=== PATIENT | female | born 1950 | race Caucasian/White ===

== ENCOUNTER → 2020-04-29 15:02 | Outpatient (BNVA) | payer OTHER, SELFPAY | PROVIDERS: PCP Nurse Practitioner Family; Visit Provider Nurse Practitioner Family | DX: R73.9 Hyperglycemia, unspecified (principal); I10 Essential (primary) hypertension | CPT/HCPCS: 80053; 80061; 84443; 85025 ==

== ENCOUNTER → 2020-05-13 09:04 | Outpatient (BNVA) | payer OTHER, SELFPAY | PROVIDERS: PCP Nurse Practitioner Family; Visit Provider Nurse Practitioner | DX: I10 Essential (primary) hypertension (principal); R73.9 Hyperglycemia, unspecified | CPT/HCPCS: 83036 ==

== ENCOUNTER 2020-09-10 13:47 | Outpatient (CLI) | payer MEDICARE, SELFPAY ==
--- NOTE | 2020-09-10 14:15 | USCV_ITS ---
Kaitlin Cee Age: 69 Gender: F : 1950 Exam Date: 09/10/2020 14:26 Ordering Phys: Hugo Reynaga Technologist: Clement Nelson Exam Location: [facility] [place] Indication: CHEST PAIN BP: 125 / 70 HR: 90 Rhythm: Sinus Technical Quality: Good MEASUREMENTS (Male / Female) Normal Values 2D ECHO LV Diastolic Diameter PLAX 4.3 cm 4.2 - 5.9 / 3.9 - 5.3 cm LV Systolic Diameter PLAX 2.4 cm IVS Diastolic Thickness 0.7 cm 0.6 - 1.0 / 0.6 - 0.9 cm IVS Systolic Thickness 1.4 cm LVPW Diastolic Thickness 1.0 cm 0.6 - 1.0 / 0.6 - 0.9 cm LVPW Systolic Thickness 1.2 cm LVOT Diameter 2.1 cm LV Ejection Fraction 2D Teich 77.2 % LV Ejection Fraction MOD 2C 78.7 % LV Ejection Fraction 2C AL 78.3 % LA Diameter 2.7 cm LA Width 4.2 cm LA Height 3.9 cm RA Width 3.5 cm RA Height 4.3 cm Aorta at Sinotubular Diameter 2.3 cm DOPPLER AV Peak Velocity 152.0 cm/s LVOT Peak Velocity 107.0 cm/s AV Area Cont Eq vti 2.4 cm squared AV Area Cont Eq pk 2.4 cm squared MV Area PHT 5.0 cm squared Mitral E to A Ratio 1.1 MV E' Velocity 58.5 cm/s Mitral E to MV E' Ratio 8.1 Mitral E to LV E' Lateral Ratio 7.8 Mitral E to LV E' Septal Ratio 8.4 TR Peak Velocity 166.7 cm/s TR Peak Gradient 11.1 mmHg Right Atrial Pressure 3.0 mmHg Pulmonary Artery Systolic Pressu 14.1 mmHg FINDINGS Left Ventricle Normal left ventricular size and systolic function, EF 75 %. No regional wall motion abnormalities. Right Ventricle Normal right ventricular size and systolic function. Echodensity towards the RV apex may suggest border to band Right Atrium The right atrium is normal in size. Left Atrium The left atrium is normal in size. Mitral Valve Trace mitral valve regurgitation. Minimally thickened mitral valve Aortic Valve Minimally thickened aortic valve Tricuspid Valve No Gross abnormalities noted Pulmonic Valve No gross abnormalities noted Pericardium No pericardial effusion. Aorta Normal ascending aorta dimension. CONCLUSIONS Normal left ventricular size and systolic function, EF 75 %. No regional wall motion abnormalities. Normal right ventricular size and systolic function. Echodensity towards the RV apex may suggest border to band Minimally thickened aortic and mitral valves. Trace mitral valve regurgitation. No significant stenotic or regurgitant lesions No previous study is available for comparison. Dr Sabra Frederick MD [facility] (Electronically Signed) Final Date: 10 September 2020 20:31 S
--- NOTE | 2020-09-10 15:00 | USCV_ITS ---
KunalKaitlin peterson Age: 69 Gender: F : 1950 Exam Date: 09/10/2020 14:39 Ordering Phys: Hugo Reynaga Technologist: Clement Nelson [place] [facility] [place]: [place] Risk Factors: Unknown Previous Vascular Surgery: None Right Brachial BP: / Left Brachial BP: / Right Left Velocity (cm/s) Spectral Plaque Velocity (cm/s) Spectral Plaque Syst/Diast Broadening Syst/Diast Broadening 97.00/ 18.70 Prox CCA 93.50 / 23.40 79.40/ 17.60 Mid CCA 104.30/ 19.80 70.60/ 20.90 Hetro Distal CCA 80.20 / 18.40 Hetro 113.30/21.60 Hetro Prox ICA 147.60/ 40.40 Hetro 125.90/28.80 Mid ICA 127.40/ 23.10 129.50/27.00 Distal ICA 107.70/ 19.80 169.10 Hetro ECA 106.90 Hetro 1.33 ICA/CCA 1.41 Antegrade Vertebral Antegrade 109.7/ 34.20 cm/s 33.60/ 13.20 cm/s 0 Tri Subclavian Tri 188.9 76.90 0 FINDINGS Moderate heterogeneous plaques at the left bifurcation and proximal carotid artery Moderate heterogeneous plaques at the right bifurcation and internal carotid artery. Antegrade flow in the vertebral arteries bilaterally Elevated Doppler flow velocity in the right vertebral and subclavian arteries Normal Doppler flow velocities in the left vertebral and subclavian arteries CONCLUSIONS Moderate heterogeneous plaques o at the left bifurcation and proximal carotid artery with Doppler features, consistent with 50 to 69% gnosis Moderate heterogeneous plaques of the right bifurcation and internal carotid artery with Doppler features consistent with less than 50% stenosis. Elevated velocity in the right subclavian and vertebral arteries may suggest hemodynamically significant stenosis No similar previous studies are available for comparison. Consider CTA to better evaluate the subclavian and vertebral arteries Dr Sabra Frederick MD [facility] (Electronically Signed) Final Date: 10 September 2020 20:56 S
== END 2020-09-10 13:48 | disposition home or self-care (01) ==
LOC: US 13:51
PROVIDERS: PCP Nurse Practitioner; Visit Provider Nurse Practitioner
DX: R09.89 Other specified symptoms and signs involving the circulatory and respiratory systems (principal); R01.1 Cardiac murmur, unspecified; R55 Syncope and collapse; I65.23 Occlusion and stenosis of bilateral carotid arteries; I08.0 Rheumatic disorders of both mitral and aortic valves
CPT/HCPCS: 93306; 93880

== ENCOUNTER 2020-11-02 07:54 | Outpatient (CLI) | payer MEDICARE, SELFPAY ==
--- NOTE | 2020-11-02 08:23 | CT_ITS ---
WS: [id number] CTA HEAD AND NECK TECHNIQUE: Contrast enhanced CTA of the head and neck with coronal and sagittal reformatted images an d maximum intensity projection (MIP) images. NASCET criteria utilized. CLINICAL INFORMATION: R09.89 - Other specified symptoms and signs involving the... COMPARISON: None. DLP: 1997.[address] scans at [facility] use at least one of these dose optimization techniques: automated e xposure control; mA and/or kV adjustment per patient size (includes targeted exams where dose is matc hed to clinical indication); or iterative reconstruction. FINDINGS: Mild small vessel changes. Mild parenchymal volume loss. No extra-axial fluid collections. Paranasal sinuses are well aerated. Mastoid air cells are well aerated. Heterogeneous multinodular th yroid worse in the left. Enlarged left thyroid lobe with multiple nodules largest left lower lobe ext ending into the upper mediastinum measuring 3.2 x 5.5 cm. Lung apices are well aerated. Ectopic heterogeneous enhancing ectopic thyroid tissue or exophytic nodule along the midline neck jus t inferior to the hyoid. This measures approximately 15 x 10 mm. This can be further evaluated with u ltrasound. This just abuts the superior aspect of the isthmus. RIGHT: Right common carotid artery is patent. Moderate calcified atheromatous plaque right carotid bu lb extending into the ICA. Less than 50% right ICA stenosis. Right ICA is patent to the skull base. LEFT: Left common carotid artery is patent. Moderate calcified atheromatous plaque left carotid bulb extending into the ICA. Left ICA stenosis measures 58%. Left ICA remains patent to the skull base. INTRACRANIAL CTA: Small right vertebral artery. Left dominant vertebral artery. Both vertebral arteries are patent. Bas ilar artery is patent. Normal vascularity to the [employer] territory bilaterally. Persistent right PC A. Both ICAs are patent at the skull base. Calcified cavernous carotid calcification. Normal vascularity to the BRIANNA and MCA territories bilaterally. No flow-limiting intracranial stenosis. No aneurysm. Moderate spondylitic changes cervical spine with anterior hypertrophic changes. Slight anterolisthesi s C3 on C4 and C4 on C5. Proximal subclavian arteries are patent. CT/CT angio headneck* [id number] IMPRESSION: 1. Calcified atheromatous plaque RIGHT carotid bulb extending into the ICA wit h less than 50% stenosis. 2. Calcified atheromatous plaque LEFT carotid bulb extending into the ICA with approximately 58% stenosis. 3. Left dominant vertebral artery. Both vertebral arteries are patent. 4. Normal intracranial CTA. Normal variant persistent right [employer]. 5. Heterogeneous enlarged thyroid worse in the left. Additional ectopic midlin e thyroid tissue or exophytic Isthmus nodule described above. Thyroid can be fu rther evaluated with ultrasound. 6. Moderate spondylitic changes cervical spine.
[2020-11-02] MEDS: iohexol 350 mg/mL 100 mL Btl IV (08:57)
[2020-11-02 11:20] LABS: Blood Urea Nitrogen 12 mg/dL (8-23)
== END 2020-11-02 07:55 | disposition home or self-care (01) ==
PROVIDERS: PCP Nurse Practitioner; Visit Provider Nurse Practitioner
DX: R09.89 Other specified symptoms and signs involving the circulatory and respiratory systems (principal); E78.2 Mixed hyperlipidemia; I10 Essential (primary) hypertension; E04.9 Nontoxic goiter, unspecified; I65.23 Occlusion and stenosis of bilateral carotid arteries
CPT/HCPCS: 70496; 70498; 82565; 84520; Q9967

== ENCOUNTER → 2020-11-16 10:21 | Outpatient (BNVA) | payer MEDICARE, SELFPAY | PROVIDERS: PCP Nurse Practitioner; Visit Provider Nurse Practitioner | DX: E78.2 Mixed hyperlipidemia (principal); I10 Essential (primary) hypertension | CPT/HCPCS: 80053; 80061; 84443 ==

== ENCOUNTER → 2021-05-26 09:30 | Outpatient (BNVA) | payer MEDICARE, SELFPAY | PROVIDERS: PCP Nurse Practitioner; Visit Provider Nurse Practitioner | DX: E78.2 Mixed hyperlipidemia (principal); I10 Essential (primary) hypertension | CPT/HCPCS: 80053 ==

== ENCOUNTER → 2021-11-04 14:20 | Outpatient (BNVA) | payer MEDICARE, SELFPAY | PROVIDERS: PCP Nurse Practitioner; Visit Provider Nurse Practitioner | DX: I10 Essential (primary) hypertension (principal); E04.9 Nontoxic goiter, unspecified; E78.2 Mixed hyperlipidemia; R09.89 Other specified symptoms and signs involving the circulatory and respiratory systems | CPT/HCPCS: 80053; 80061; 84443 ==

== ENCOUNTER → 2022-06-07 11:59 | Outpatient (BNVA) | payer MEDICARE, SELFPAY | PROVIDERS: PCP Nurse Practitioner; Visit Provider Nurse Practitioner | DX: I10 Essential (primary) hypertension (principal); E78.2 Mixed hyperlipidemia | CPT/HCPCS: 80053; 80061; 84443 ==

== ENCOUNTER → 2022-10-27 10:49 | Outpatient (BNVA) | payer MEDICARE, SELFPAY | PROVIDERS: PCP Nurse Practitioner; Visit Provider Nurse Practitioner | DX: I10 Essential (primary) hypertension (principal) | CPT/HCPCS: 80053; 80061 ==

== ENCOUNTER → 2023-03-01 12:17 | Outpatient (BNVA) | payer MEDICARE, SELFPAY | PROVIDERS: PCP Nurse Practitioner; Visit Provider Nurse Practitioner | DX: I10 Essential (primary) hypertension (principal); E78.2 Mixed hyperlipidemia | CPT/HCPCS: 80053; 82607; 83735; 84443; 85025 ==

== ENCOUNTER 2023-03-21 07:53 | Outpatient (CLI) | payer MEDICARE, SELFPAY ==
--- NOTE | 2023-03-21 09:00 | CT_ITS ---
WS: [id number] CT HEAD NONCONTRAST HISTORY: R42 - Dizziness and giddiness TECHNIQUE: Contiguous axial imaging performed through the brain in 2.5 mm imaging. Bone and soft tiss ue windows. Sagittal and coronal reformats reviewed. All CT scans at [facility] use at least one of these dose optimization techniques: automated exposure control; mA and/or kV adjustment per pa tient size (includes targeted exams where dose is matched to clinical indication); or iterative recon struction. DLP: 1004.58 mGy.cm COMPARISON: 11/02/2020 No acute intracranial hemorrhage, midline shift or mass effect. Mild symmetric atrophy. Mild progression since 11/02/2020. Mild small vessel ischemic disease. No prio r infarct. Ventricles: Normal size with no hydrocephalus. No inferior displacement of the cerebellar tonsils. Paranasal sinuses: As visualized are clear. Mastoid air cells: Mild coalescence of the mastoid air cells. No fluid within the air cells. Calvarium and scalp: Hyperostosis frontalis interna. IMPRESSION: 1. No acute intracranial hemorrhage or edema. 2. Mild atrophy and small vessel ischemic disease. Minimal progression of atrophy since 11/02/2020.
== END 2023-03-21 07:54 | disposition home or self-care (01) ==
LOC: RAD 07:54
PROVIDERS: PCP Nurse Practitioner; Visit Provider Nurse Practitioner
DX: R42 Dizziness and giddiness (principal); I67.82 Cerebral ischemia
CPT/HCPCS: 70450

== ENCOUNTER → 2023-06-15 08:45 | Outpatient (BNVA) | payer MEDICARE, SELFPAY | PROVIDERS: PCP Nurse Practitioner; Visit Provider Nurse Practitioner | DX: I10 Essential (primary) hypertension (principal); E78.2 Mixed hyperlipidemia | CPT/HCPCS: 80053; 80061; 84443 ==

== ENCOUNTER 2023-06-27 05:59 | Outpatient (CLI) | payer MEDICARE, SELFPAY ==
--- NOTE | 2023-06-27 06:45 | US_ITS ---
WS: [id number] THYROID ULTRASOUND HISTORY: E04.9 - Nontoxic goiter, unspecified COMPARISON: None available. Right lobe: 2.1 cm x 2.1 cm x 5.5 cm (w x ap x l). Volume: 11.3 cm3. Very mildly enlarged gland. Very subtle hypoechoic nodule in the RIGHT isthmus measuring 0.7 x 0.3 x 1.0 cm. No echogenic foci. Left lobe: 3.5 cm x 3.0 cm x 5.5 cm (w x ap x l). Volume: 27.8 cm3. Moderately enlarged thyroid. There is a complex solid and cystic nodule in the superior pole measurin g 1.2 x 1.1 x 1.0 cm. No echogenic foci. Peripheral increased vascularity. There is a larger nodule w hich is solid and a few scattered cystic components in the mid thyroid measuring 3.7 x 3.6 x 3.2 cm. No echogenic foci. Margins are slightly lobulated. Isthmus: 0.3 cm. US/US thyroid [id number] IMPRESSION: 1. TI-RADS 4: Mid LEFT thyroid nodule measuring 3.7 x 3.6 x 3.2 cm. Recommend ultrasound-guided FNA. 2. Additional smaller nodules in each thyroid lobe can undergo yearly evaluati on.
== END 2023-06-27 06:00 | disposition home or self-care (01) ==
LOC: RAD 05:59
PROVIDERS: PCP Nurse Practitioner; Visit Provider Nurse Practitioner
DX: E04.2 Nontoxic multinodular goiter (principal)
CPT/HCPCS: 76536

== ENCOUNTER 2023-07-19 11:47 | Outpatient (CLI) | payer MEDICARE, SELFPAY ==
--- NOTE | 2023-07-19 13:45 | US_ITS ---
WS: [id number] ULTRASOUND-GUIDED LEFT THYROID NODULE FNA HISTORY: E04.1 - Nontoxic single thyroid nodule Procedure, risks, and complications were explained to the patient. Consent has been obtained. Prior imaging studies reviewed, 06/27/2023 The skin is cleansed with ChloraPrep and anesthetized with 1% buffered lidocaine. FNA performed with 25 gauge needles. engineering technologist is present to fix slides. During the procedure there is a small amount of bleeding at the biopsy site. This lesion was very vas cular. US/US biopsy/FNA thyroid [id number] IMPRESSION: Uncomplicated FNA of a LEFT thyroid nodule. Final pathology results pending.
== END 2023-07-19 11:48 | disposition home or self-care (01) ==
LOC: RAD 11:47
PROVIDERS: PCP Nurse Practitioner; Visit Provider Nurse Practitioner
DX: E04.1 Nontoxic single thyroid nodule (principal)
CPT/HCPCS: 10005; 88173